=== PATIENT | female | born 1935 | race Caucasian/White ===

== ENCOUNTER 2017-11-11 14:43 | Inpatient (IN) ==
[2017-11-11] MEDS ORDERED: ONDANSETRON 4 MG/2 ML VIAL IV STA (16:13)
[2017-11-11] MEDS ORDERED: DICYCLOMINE 20 MG/2 ML AMP IM ONE (16:13)
[2017-11-11] MEDS ORDERED: ONDANSETRON 4 MG/2 ML VIAL ONE (16:57)
[2017-11-11 17:03] LABS: Basophils % 0.1 % (0.0-0.8); Eosinophils % 0.1 % (0.00-10.9); Hematocrit 36.7 VOL% (35.7-47.0); Hemoglobin 12.2 GM/DL (12.0-16.0); Immature Granulocytes % 0.5 %; Immature Granulocytes Absolute 0.06 #; Lymphocytes # 1.5 10*3/uL (1.4-4.0); Lymphocytes % 11.7 % (21.3-54.2); Mean Corpuscular HGB Conc 33.2 GM/DL (32-36); Mean Corpuscular Hemoglobin 32 PG (27-34); Mean Corpuscular Volume 97.3 FL (87-102); Mean Platelet Volume 11.2 FL (9.6-12.0); Monocytes # 1.8 10*3/uL (0.11-0.8); Neutrophils # 9.5 10*3/uL (1.4-7.4); Neutrophils % 73.6 % (38.7-73.9); Platelet Count 163 T/CUMM (130-400); Red Blood Count 3.77 MC/CUMM (3.8-5.5); White Blood Count 12.9 T/CUMM (4-12)
[2017-11-11 17:11] LABS: Apearance,Urine CLEAR (Clear); Bacteria,Urine Occasional /HPF (Few); Bilirubin,Urine Negative (Negative); Blood, Urine Small mg/dL (Negative); Glucose,Urine (UA) Negative (Negative); Ketones,Urine Negative (Negative); Nitrite,Urine Negative (Negative); Protein,Urine Negative; RBC,Urine 4 /HPF (0-4); Squamous Epithelial Cell,Urine Occasional /HPF (0-10); Urine Color Yellow (Yellow); Urine Specific Gravity 1.008 (1.001-1.035); Urine Urobilinogen < 2.0 EU/DL (0.2-1.0); WBC,Urine 16 /HPF (0-6)
[2017-11-11 17:26] LABS: Lactic Acid 1.2 MMOL/L (0.4-2.0)
[2017-11-11 17:34] LABS: Alanine Aminotransferase 16 U/L (13-56); Albumin 4.1 G/DL (3.4-5.0); Alkaline Phosphatase 59 U/L (45-117); Amylase 132 U/L (25-115); Aspartate Amino Transferase 18 U/L (0-37); Blood Urea Nitrogen 12 MG/DL (7-18); Calcium 8.9 MG/DL (8.5-10.1); Glucose 128 MG/DL (74-106); Osmolality,Calculated 276.7 MOS/KG (273-304); Potassium 3.8 MMOL/L (3.5-5.1); Sodium 138 MMOL/L (136-145); Total Protein 7.2 G/DL (6.4-8.3); Troponin I Only < 0.015 NG/ML (0.00-0.045)
[2017-11-11] MEDS ORDERED: CEFEPIME 2,000 MG in SODIUM CHLORIDE 0.9% 100 ML IV STA (19:46)
[2017-11-11] MEDS ORDERED: metroNIDAZOLE INJ 500 MG in PREMIX 1 EACH IV STA (19:46)
[2017-11-11] MEDS ORDERED: metroNIDAZOLE 500 MG/100 ML PREMIX IV ONE (19:51)
[2017-11-11] MEDS ORDERED: CEFEPIME 2,000 MG VIAL ONE (19:51)
[2017-11-11] MEDS ORDERED: MORPHINE 2 MG/1 ML SYRINGE IV PRN (20:35)
[2017-11-11] MEDS ORDERED: ONDANSETRON 4 MG/2 ML VIAL IV PRN (20:35)
[2017-11-11] MEDS: SODIUM CHLOR 0.9% KCL 20 MEQ 20 MEQ/1,000 ML BAG IV SCH (22:34)
[2017-11-11] MEDS: LEVOFLOXACIN INJ 500 MG in PREMIX 1 EACH IV SCH (22:34)
[2017-11-11] MEDS: CARVEDILOL 25 MG TABLET PO SCH (22:35)
[2017-11-11] MEDS: ENOXAPARIN 40 MG/0.4 ML SYRINGE SUBCUT SCH (22:35)
[2017-11-12] MEDS: metroNIDAZOLE INJ 500 MG in PREMIX 1 EACH IV SCH ×3 (03:21→21:14)
[2017-11-12 05:24] LABS: Hematocrit 31.5 VOL% (35.7-47.0); Hemoglobin 10.5 GM/DL (12.0-16.0); Lymphocytes % 15.2 % (21.3-54.2); Mean Corpuscular HGB Conc 33.3 GM/DL (32-36); Mean Corpuscular Hemoglobin 32 PG (27-34); Mean Corpuscular Volume 96.6 FL (87-102); Mean Platelet Volume 11.4 FL (9.6-12.0); Monocytes % 14.5 % (1.7-12.7); Neutrophils % 69.3 % (38.7-73.9); Platelet Count 136 T/CUMM (130-400); Red Blood Count 3.26 MC/CUMM (3.8-5.5); Red Cell Distribution Width 13.1 % (9.3-17.3); White Blood Count 10.4 T/CUMM (4-12)
[2017-11-12 05:25] LABS: Basophils % 0.1 % (0.0-0.8); Eosinophils # 0.1 10*3/uL (0.0-0.87); Eosinophils % 0.5 % (0.00-10.9); Immature Granulocytes % 0.4 %; Immature Granulocytes Absolute 0.04 #; Lymphocytes # 1.6 10*3/uL (1.4-4.0); Monocytes # 1.5 10*3/uL (0.11-0.8); Neutrophils # 7.2 10*3/uL (1.4-7.4)
[2017-11-12] MEDS: SODIUM CHLOR 0.9% KCL 20 MEQ 20 MEQ/1,000 ML BAG IV SCH ×3 (09:59→21:17)
[2017-11-12] MEDS: CARVEDILOL 25 MG TABLET PO SCH ×2 (10:33→21:13)
[2017-11-12] MEDS: LOSARTAN/HCTZ 50-12.5 MG TABLET PO SCH (10:33)
[2017-11-12] MEDS ORDERED: LOVASTATIN 20 MG TABLET PO SCH (17:00)
[2017-11-12] MEDS: ENOXAPARIN 40 MG/0.4 ML SYRINGE SUBCUT SCH (21:13)
[2017-11-12] MEDS: LEVOFLOXACIN INJ 500 MG in PREMIX 1 EACH IV SCH (23:47)
[2017-11-13] MEDS: SODIUM CHLOR 0.9% KCL 20 MEQ 20 MEQ/1,000 ML BAG IV SCH (05:38)
[2017-11-13] MEDS: metroNIDAZOLE INJ 500 MG in PREMIX 1 EACH IV SCH (05:52)
[2017-11-13] MEDS: CARVEDILOL 25 MG TABLET PO SCH (09:55)
[2017-11-13] MEDS: LOSARTAN/HCTZ 50-12.5 MG TABLET PO SCH (09:55)
[2017-11-13 11:20] VITALS: BP 131/69
== END 2017-11-13 12:50 | disposition home or self-care (01) | DRG 392 ==
LOC: N.ED 14:43 → N.EDINP 20:35 → SUATTDRO 20:35 → N.3E 21:41
PROVIDERS: ADMIT Internal Medicine; ATTEND Family Medicine